=== PATIENT | female | born 1980 | race Caucasian/White ===

== ENCOUNTER 2017-08-06 15:28 | Emergency (ER) | payer SELFPAY ==
[2017-08-06] MEDS ORDERED: ORPHENADRINE CITRATE 30 MG/ML VIAL IM ONE (16:31)
[2017-08-06] MEDS ORDERED: KETOROLAC TROMETHAMINE 60 MG/2 ML VIAL IM ONE ×2 (16:31→16:36)
--- NOTE | 2017-08-06 16:32 | ERNOTE ---
[facility] Date of Service: 08/06/17 Presenting Symptoms: other - Eye twitching Time Seen by Provider: 08/06/17 15:59 Source: patient, RN notes reviewed Exam Limitations: no limitations - Immun/Allergies/Home Medications Immunizations: IMMUNIZATION HX Immunizations Up to Date Yes History of Influenza Vaccine Yes Hx Pneumococcal Vaccination No Allergies/Adverse Reactions: Allergies Allergy/AdvReac Type Severity Reaction Status Date / Time Penicillins Allergy Mild Hives Verified 08/06/17 15:48 sulfamethoxazole Allergy Verified 08/06/17 15:48 [From Bactrim] trimethoprim [From Bactrim] Allergy Verified 08/06/17 15:48 Home Medications: HOME MEDICATIONS Escitalopram Oxalate [Lexapro] 20 mg PO DAILY 08/06/17 [Last Taken Unknown] Fluticasone Propionate [Flonase] 2 spray NS BID 08/06/17 [Last Taken Unknown] Omeprazole [Prilosec] 20 mg PO DAILY 08/06/17 [Last Taken Unknown] - History of Present Illness Narrative: 37 year old female presents to the ED for right eye twitching that began yesterday. She reports having difficulty keeping the eye open. She also has a headache. She saw her eye doctor today and reports that her eye exam was without findings. She was instructed to go to her PCP, whom she reports told her that she was making the symptoms up. She does report being under a lot of stress. Date (Duration): 08/05/17 ENT Location: Present: eye (R) Prior Treament: Reports: recently seen. Denies: similar symptoms before Review of Systems - Review of Systems Constitutional: Present: fatigue. Absent: fever, chills, malaise EYE: Absent: eye pain, eye discharge ENT: Absent: ear pain, nose congestion, sore throat Respiratory: Absent: shortness of breath, cough Cardiology: Absent: chest pain, syncope Gastrointestinal/Abdominal: Absent: nausea, vomiting Genitourinary: Present: no symptoms reported Musculoskeletal: Absent: muscle pain, neck pain Skin: Absent: rash, lesions Neurological: Present: headache. Absent: dizziness/light-headedness, weakness, numbness, tingling Endocrine: Present: no symptoms reported Hematologic/Lymphatic: Absent: easy bruising, easy bleeding Psych: Absent: anxiety, depressed - Patient's Past Medical History Patient History - Medical: Anxiety, GERD Patient History - Cardiac/Respiratory: Asthma Patient History - Cancer: No Hx of Cancer Patient History - Surgical Procedures: Other Patient History - Other: None LMP (females 10-50): last week - Social History Living Situations: significant other Abuse History: No History of abuse Psych History: Hx of Anxiety Smoking Status: Current every day smoker Have you smoked in the past 12 months: Yes Do you dip or chew tobacco: No Patient requests Smoking Cessation Consult: No Initiate information on Smoking Cessation: No Alcohol Use: none Drug Use: none - Immunizations Immunizations Up to Date: Yes Hx Pneumococcal Vaccination: No History of Influenza Vaccine: Yes Physical Exam - Physical Exam General Appearance: Present: wd/wn, alert, mild distress Head Exam: Present: normal inspection, no evidence of injury. Absent: swelling , tenderness Eye Exam: PERRL: bilateral, Abnormal pupil: bilateral - cycloplegic given [employer], Other: right - blepharospasm noted Ears, Nose, Throat: Present: normal ENT inspection, normal pharynx Neck: Present: normal inspection, nontender, supple, full range of motion Respiratory: Present: no respiratory distress, normal breath sounds, no accessory muscle use, lungs clear Cardiovascular/Chest: Present: regular rate, rhythm, no murmur Extremity Exam: Present: normal inspection, normal range of motion, no edema Neurological Exam: Present: alert, oriented, normal mood/affect, no motor/ sensory deficits Skin Exam: Present: normal color, warm/dry ED Progress - Results and Orders Patient's Lab Results:: I have reviewed the patient's lab results. - Vital Signs Patient's Vital Signs:: I have reviewed the patient's vital signs. Vital Signs: Vital Signs 08/06/17 15:44 Temperature 36.5 C Pulse Rate 66 Respiratory 16 Rate Blood Pressure 151/83 O2 Sat by Pulse 100 Oximetry - Progress/Reassessment Chief Complaint: Eye Injury/Trauma Progress:: Improved Progress Note-Subjective: 08/06/17 17:55 Symptoms resolved with Toradol and Norflex. Patient reports having a muscle relaxant at home that she can take if needed. Departure Clinical Impression: Blepharospasm Headache Qualifiers: Headache type: tension-type Headache chronicity pattern: acute headache Intractability: not intractable Qualified Code(s): G44.209 - Tension-type headache, unspecified, not intractable - Departure Disposition: Home self-care Condition: Stable Instructions: Blepharospasm Additional Instructions: OK to take ibuprofen for headache and your muscle relaxant for twitching Rest, try to reduce your stress level Follow up as needed Referrals: Jaciel Viveros MD [Primary Care Provider] -
[2017-08-06] MEDS ORDERED: ORPHENADRINE CITRATE 30 MG/ML VIAL ONE (16:36)
[2017-08-06 16:43] LABS: Hematocrit 40.7 % (37.0-47.0); Hemoglobin 14.3 gm/dL (12.5-16.0); Mean Cell Volume 89.5 fl (78-100); Mean Corpuscular Hemoglobin 31.4 pg (27-31); Mean Corpuscular Hgb Conc 35.1 g/dl (32-36); Mean Platelet Volume 12.3 fl (6.0-9.5); Neutrophil # 6.1 K/mm3 (1.3-6.0); Neutrophil % 65.6 % (42-75.0); Platelet Count 155 K/mm3 (150-450); Red Blood Count 4.55 M/mm3 (4.2-5.4); White Blood Count 9.2 K/mm3 (4.0-10.5)
[2017-08-06 16:55] LABS: ALT 24 U/L (19-67); AST 20 U/L (0-48); Albumin * 3.6 gm/dl (3.4-5.0); Alkaline Phosphatase * 96 U/L (50-170); Anion Gap 15.1 mmol/L (6.8-13.8); BUN/Creatinine Ratio 16.2 (9.0-21.6); Bilirubin, Total 0.1 mg/dL (0.0-1.1); Blood Urea Nitrogen 11 mg/dL (3-23); Ca. Corrected For Albumin 7.8 mg/dL (8.4-10.2); Calcium * 7.8 mg/dL (7.9-10.9); Carbon Dioxide 23.8 mmol/L (24-32.6); Chloride 107 mmol/L (97-106); Glucose * 96 mg/dL (70-110); Potassium 3.9 mmol/L (3.4-4.6); Sodium 142 mmol/L (132-142); Total Protein 7.2 gm/dL (6.2-8.2)
[2017-08-06 18:09] VITALS: BP 128/72
== END 2017-08-06 18:05 | disposition home or self-care (01) ==
LOC: ER 15:28
DX: G44.209 Tension-type headache, unspecified, not intractable; G24.5 Blepharospasm; F41.9 Anxiety disorder, unspecified; K21.9 Gastro-esophageal reflux disease without esophagitis; F17.210 Nicotine dependence, cigarettes, uncomplicated